=== PATIENT | male | born 1985 | race Caucasian/White ===

== ENCOUNTER 2019-05-02 19:51 | Emergency (ER) | payer OTHER ==
[2019-05-02] MEDS ORDERED: ALPRAZolam 0.5 MG Tab PO ONE (20:28)
[2019-05-02] MEDS ORDERED: Acetaminophen 325 MG Tab PO ONE (20:29)
[2019-05-02 21:02] LABS: BLOOD UREA NITROGEN,BUN 14 mg/dL (7.0-18.0); CARBON DIOXIDE,CO2 26.6 mmol/L (21.0-32.0); CHLORIDE,CL 101 mmol/L (98-107); GLUCOSE RANDOM 104 mg/dL (74-106); POTASSIUM,K 4.2 mmol/L (3.5-5.1); SODIUM,NA 138 mmol/L (136-148)
--- NOTE | 2019-05-02 21:05 | EDM.PDOC ---
ED HPI GENERAL MEDICAL PROBLEM - General Chief Complaint: Neurological Problem Stated Complaint: EMS ARRIVAL Time Seen by Provider: 05/02/19 20:10 Source of Information: Reports: Patient, EMS - History of Present Illness INITIAL COMMENTS - FREE TEXT/NARRATIVE: The patient is a 33-year-old male who presents to the ER for a reported first- time seizure. The patient has a history of PTSD from the for which he is on Xanax 1 mg 3 times a day. He states that a couple of days ago he stopped taking them all abruptly because he is tired of being on that medication. 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 When he woke up, there was EMS around him and he was told that he had a seizure. Patient denies any prodromal symptoms, he did not have any lightheaded sensations, did not feel nauseated, no flashing lights, no palpitations, no chest pain, no other acute complaints. The patient does state that he has a chronic headache for which she has never been seen that has been ongoing for a few years but he just assumed that it is secondary to all of his other chronic aches and pains from the . He also has an acute headache as well as the patient did strike his head and has a contusion on his left forehead. Bystanders state that the patient had a tonic-clonic seizure that lasted a couple of minutes and the patient had a postictal episode. He could not speak right, could not remember his 's phone number or who she was, etc. Currently he is awake alert and oriented x3 and feels normal except a little anxious. He denies any drug use or any other acute complaints. Treatments TISSUE TECHNOLOGIST: Reports: IV/IO head Pain Score (Numeric/FACES): 5 - Related Data Allergies Allergy/AdvReac Type Severity Reaction Status Date / Time No Known Allergies Allergy Verified 05/02/19 20:10 Home Meds: Home Meds ALPRAZolam [Xanax] 1 mg PO Q8HR 3 Days #10 tablet 05/02/19 [Rx] ALPRAZolam [Xanax] 1 mg PO TID 05/02/19 [History] Sertraline [Zoloft] 05/02/19 [History] ED ROS GENERAL - Review of Systems Review Of Systems: See Below (Positive for seizure, positive for acute on chronic headache, negative for fevers, negative for chills, negative for palpitations, negative for chest pain, all other Positives and pertinent negatives as per HPI. All other pertinent systems were reviewed and are negative ) ED EXAM, NEURO - Physical Exam Exam: See Below Text/Narrative:: Constitutional: No acute distress, Non-toxic appearance, appears slightly anxious but otherwise appropriate HEENT.: Normocephalic, Atraumatic with the exception of a small ecchymotic contusion on the left forehead, PERRL, EOMI, External ears are atraumatic, nares are patent without epistaxis Neck: Normal range of motion, Trachea Midline, No stridor Respiratory.: No respiratory distress, No tachypnea, Lungs Clear to Auscultation bilaterally without wheezes, rales, or rhonchi Cardiovascular.: Regular rate and Rhythm without murmurs, rubs, or gallops, good peripheral perfusion GI: Abdomen soft and non tender, no masses, no rebound, rigidity, or guarding Genital Urinary: Deferred Musculoskeletal: Good range of motion. All 4 extremities present and atraumatic , no edema Back: Full Range of Motion Skin: Warm, Dry, Color is ethnicity appropriate, No acute rash. Lymphatic: No lymphadenopathy noted Neurological: Alert, Awake and oriented x 3, No focal deficits noted appreciate , cranial nerves grossly intact, GCS 15 Psych: Affect, Judgement, mood normal *Q Meaningful Use (ADM) - VTE *Q VTE Criteria *Q: not indicated Course - Vital Signs Text/Narrative:: Given the entire history and exam my clinical suspicion is that the patient had a generalized tonic-clonic seizure secondary to the abrupt cessation of benzodiazepines for which she chronically takes 3 times daily. Given this and that the patient does drink daily (does not sound like he has an alcoholic ) but given the combination of the two and the abrupt cessation of the REYMUNDO receptor stimulation, this could prime the patient for seizures. Other considerations such as a brain mass, traumatic subdural hematoma, traumatic epidural hematoma, traumatic intracranial hemorrhage, hydrocephalus, seizure disorders, electrolyte disorder such as hypo-or hypernatremia, renal failure, hypoglycemia, cardiac dysrhythmias such as V. fib or V. tach, were also considered. CT scan of the brain was performed to rule out any acute pathology and although this does not the sensitivity of an MRI to rule out brain masses, or other neurological structural abnormalities it is sufficient to rule out any acute problems. Electrolytes are unremarkable, there are no signs of lymphomas or leukemias, and he does have a mild transaminitis but I do not think that this is clinically relevant in this situation. ECG The ECG was read and interpreted by me. There are p waves before every QRS with a ventricular rate of 92. The OH, QRS, and QT intervals are all normal. [place] is normal. ST segments are baseline and the T wave morphology is normal. Final interpretation is a normal Sinus rhythm and a normal ECG -and more specifically no signs of prolonged QT syndrome, [id number], Brugada syndrome, etc. or anything that could make him at a higher risk for V. fib/V. tach. I believe the patient and his appear to be responsible and they state that they will follow-up. After 2 hours of observation and no seizures I believe that he is stable to be discharged. However, he threw away all of his Xanax a couple of days ago so he was given Xanax 1 mg orally here in the ER and because there are no benzodiazepines in the [facility] -and it is a Sunday night, I will give him a prescription for Xanax enough to last him for several days until he can follow-up with his primary care physician and get appropriately weaned off of the benzodiazepines. He will also need appropriate follow-up with his physician to complete the seizure work-up on an outpatient basis. If he has any more seizures then he knows to return to the ER. Last Recorded V/S: Last Vital Signs Temp 36.8 C 05/02/19 20:05 Pulse 103 H 05/02/19 21:00 Resp 16 05/02/19 21:00 BP 132/81 05/02/19 21:00 Pulse Ox 99 05/02/19 21:00 - Orders/Labs/Meds Orders: Active Orders 24 hr Category Date Time Status EKG Documentation Completion [RC] STAT Care 05/02/19 20:25 Active Labs: Laboratory Tests 05/02/19 05/02/19 05/02/19 Range/Units 20:35 20:35 20:40 WBC 10.36 (4.0-11.0) K/uL RBC 5.18 (4.50-5.90) M/uL Hgb 16.6 (13.0-17.0) g/dL Hct 48.1 (38.0-50.0) % MCV 92.9 (80.0-98.0) fL MCH 32.0 (27.0-32.0) pg MCHC 34.5 (31.0-37.0) g/dL RDW Std Deviation 42.6 (28.0-62.0) fl RDW Coeff of [place]cha 13 (11.0-15.0) % Plt Count 252 (150-400) K/uL MPV 9.70 (7.40-12.00) fL Neut % (Auto) 72.3 (48.0-80.0) % Lymph % (Auto) 17.9 (16.0-40.0) % [place] % (Auto) 7.7 (0.0-15.0) % Eos % (Auto) 1.9 (0.0-7.0) % Baso % (Auto) 0.2 (0.0-1.5) % Neut # (Auto) 7.5 H (1.4-5.7) K/uL Lymph # (Auto) 1.9 (0.6-2.4) K/uL [place] # (Auto) 0.8 (0.0-0.8) K/uL Eos # (Auto) 0.2 (0.0-0.7) K/uL Baso # (Auto) 0.0 (0.0-0.1) K/uL Nucleated RBC % 0.0 /100WBC Nucleated RBCs # 0 K/uL Sodium 138 (136-148) mmol/L Potassium 4.2 (3.5-5.1) mmol/L Chloride 101 (98-107) mmol/L Carbon Dioxide 26.6 (21.0-32.0) mmol/L BUN 14 (7.0-18.0) mg/dL Creatinine 1.1 (0.8-1.3) mg/dL Est Cr Clr Drug Dosing 96.41 mL/min Estimated GFR (MDRD) > 60.0 ml/min Glucose 104 (74-106) mg/dL Calcium 8.7 (8.5-10.1) mg/dL Total Bilirubin 0.5 (0.2-1.0) mg/dL AST 105 H (15-37) IU/L ALT 151 H (14-63) IU/L Alkaline Phosphatase 84 (46-116) U/L Total Protein 7.2 (6.4-8.2) g/dL Albumin 3.9 (3.4-5.0) g/dL Globulin 3.3 (2.6-4.0) g/dL Albumin/Globulin Ratio 1.2 (0.9-1.6) Urine Color YELLOW Urine Appearance CLEAR Urine pH 6.5 (5.0-8.0) Ur Specific [place] 1.025 (1.001-1.035) Urine Protein NEGATIVE (NEGATIVE) mg/dL Urine Glucose (UA) NEGATIVE (NEGATIVE) mg/dL Urine Ketones 15 H (NEGATIVE) mg/dL Urine Occult Blood SMALL H (NEGATIVE) Urine Nitrite NEGATIVE (NEGATIVE) Urine Bilirubin NEGATIVE (NEGATIVE) Urine Urobilinogen 0.2 (<2.0) EU/dL Ur Leukocyte Esterase NEGATIVE (NEGATIVE) Urine RBC 0-2 (0-2/HPF) Urine WBC 0-1 (0-5/HPF) Ur Epithelial Cells RARE (NONE-FEW) Urine Bacteria RARE (NEGATIVE) Urine Opiates Screen (NEGATIVE) Ur Oxycodone Screen (NEGATIVE) Urine Methadone Screen (NEGATIVE) Ur Barbiturates Screen (NEGATIVE) Ur Phencyclidine Scrn (NEGATIVE) Ur Amphetamine Screen (NEGATIVE) U Methamphetamines Scrn (NEGATIVE) U Benzodiazepines Scrn (NEGATIVE) U Cocaine Metab Screen (NEGATIVE) U Marijuana (THC) Screen (NEGATIVE) Ethyl Alcohol <3 mg/dL 05/02/19 Range/Units 20:40 WBC (4.0-11.0) K/uL RBC (4.50-5.90) M/uL Hgb (13.0-17.0) g/dL Hct (38.0-50.0) % MCV (80.0-98.0) fL MCH (27.0-32.0) pg MCHC (31.0-37.0) g/dL RDW Std Deviation (28.0-62.0) fl RDW Coeff of [place] (11.0-15.0) % Plt Count (150-400) K/uL MPV (7.40-12.00) fL Neut % (Auto) (48.0-80.0) % Lymph % (Auto) (16.0-40.0) % [place] % (Auto) (0.0-15.0) % Eos % (Auto) (0.0-7.0) % Baso % (Auto) (0.0-1.5) % Neut # (Auto) (1.4-5.7) K/uL Lymph # (Auto) (0.6-2.4) K/uL [place] # (Auto) (0.0-0.8) K/uL Eos # (Auto) (0.0-0.7) K/uL Baso # (Auto) (0.0-0.1) K/uL Nucleated RBC % /100WBC Nucleated RBCs # K/uL Sodium (136-148) mmol/L Potassium (3.5-5.1) mmol/L Chloride (98-107) mmol/L Carbon Dioxide (21.0-32.0) mmol/L BUN (7.0-18.0) mg/dL Creatinine (0.8-1.3) mg/dL Est Cr Clr Drug Dosing mL/min Estimated GFR (MDRD) ml/min Glucose (74-106) mg/dL Calcium (8.5-10.1) mg/dL Total Bilirubin (0.2-1.0) mg/dL AST (15-37) IU/L ALT (14-63) IU/L Alkaline Phosphatase (46-116) U/L Total Protein (6.4-8.2) g/dL Albumin (3.4-5.0) g/dL Globulin (2.6-4.0) g/dL Albumin/Globulin Ratio (0.9-1.6) Urine Color Urine Appearance Urine pH (5.0-8.0) Ur Specific [place] (1.001-1.035) Urine Protein (NEGATIVE) mg/dL Urine Glucose (UA) (NEGATIVE) mg/dL Urine Ketones (NEGATIVE) mg/dL Urine Occult Blood (NEGATIVE) Urine Nitrite (NEGATIVE) Urine Bilirubin (NEGATIVE) Urine Urobilinogen (<2.0) EU/dL Ur Leukocyte Esterase (NEGATIVE) Urine RBC (0-2/HPF) Urine WBC (0-5/HPF) Ur Epithelial Cells (NONE-FEW) Urine Bacteria (NEGATIVE) Urine Opiates Screen NEGATIVE (NEGATIVE) Ur Oxycodone Screen NEGATIVE (NEGATIVE) Urine Methadone Screen NEGATIVE (NEGATIVE) Ur Barbiturates Screen NEGATIVE (NEGATIVE) Ur Phencyclidine Scrn NEGATIVE (NEGATIVE) Ur Amphetamine Screen NEGATIVE (NEGATIVE) U Methamphetamines Scrn NEGATIVE (NEGATIVE) U Benzodiazepines Scrn NEGATIVE (NEGATIVE) U Cocaine Metab Screen NEGATIVE (NEGATIVE) U Marijuana (THC) Screen NEGATIVE (NEGATIVE) Ethyl Alcohol mg/dL Meds: Medications Discontinued Medications Generic Name Dose Route Start Last Admin Trade Name Freq PRN Reason Stop Dose Admin Acetaminophen 650 mg 05/02/19 20:29 05/02/19 20:39 Tylenol PO 05/02/19 20:30 650 mg NOW ONE Administration Alprazolam 1 mg 05/02/19 20:28 05/02/19 20:39 Xanax PO 05/02/19 20:29 1 mg NOW ONE Administration Departure - Departure Time of Disposition: 22:14 Disposition: Home, Self-Care 01 Condition: Good Clinical Impression: Seizure - Discharge Information *PRESCRIPTION DRUG MONITORING PROGRAM REVIEWED*: Not Applicable *COPY OF PRESCRIPTION DRUG MONITORING REPORT IN PATIENT GINA: Not Applicable Prescriptions: ALPRAZolam [Xanax] 1 mg PO Q8HR 3 Days #10 tablet Instructions: Seizure, Adult, [id number] Referrals: Sav Trinh MD [Primary Care Provider] - Forms: ED Department Discharge Sepsis Event Note - Evaluation Sepsis Screening Result: No Definite Risk - Focused Exam Vital Signs: Vital Signs Temp Pulse Resp BP Pulse Ox 05/02/19 21:00 103 H 16 132/81 99 05/02/19 20:05 36.8 C 105 H 16 92 L Date Exam was Performed: 05/02/19 Time Exam was Performed: 22:07 - My Orders Last 24 Hours: My Active Orders 05/02/19 20:25 EKG Documentation Completion [RC] STAT - Assessment/Plan Last 24 Hours: My Active Orders 05/02/19 20:25 EKG Documentation Completion [RC] STAT
--- NOTE | 2019-05-02 21:09 | CT ---
INDICATION: Seizure TECHNIQUE: CT head without contrast. COMPARISON: None. FINDINGS: CSF spaces: Within normal limits for age. Brain parenchyma: The vallejo-white differentiation is normal. No sign of mass, hemorrhage, or midline shift. Skull base and calvarium: The visualized paranasal sinuses and mastoid air cells demonstrate no acute or significant findings. The visualized orbits are grossly unremarkable. No skull fractures. IMPRESSION: Unremarkable noncontrast head CT. Please note that all CT scans at this facility use dose modulation, iterative reconstruction, and/or weight-based dosing when appropriate to reduce radiation dose to as low as reasonably achievable. Dictated by Rashi Smith MD @ May 02 2019 9:05PM Signed by Dr. Rashi Smith @ May 02 2019 9:07PM
== END 2019-05-02 22:25 | disposition home or self-care (01) ==
LOC: MW.ED 19:51
DX: R56.9 Unspecified convulsions (principal); F43.10 Post-traumatic stress disorder, unspecified; Z79.899 Other long term (current) drug therapy
CPT/HCPCS: 36415; 70450; 80053; 80305; 80307; 81001; 85025; 93005; 99285; A9270; 99284

== ENCOUNTER 2019-06-14 21:59 | Emergency (ER) | payer OTHER ==
[2019-06-14] MEDS ORDERED: ALPRAZolam 0.5 MG Tab PO ONE (23:41)
--- NOTE | 2019-06-15 00:02 | EDM.PDOCBH ---
ED [facility] GENERAL MEDICAL PROBLEM - General Chief Complaint: Behavioral/Psych Stated Complaint: MED CLEARANCE/VOLUNTARY MENTAL HEALTH Time Seen by Provider: 06/14/19 23:59 Source of Information: Reports: Patient History Limitations: Reports: No Limitations - History of Present Illness INITIAL COMMENTS - FREE TEXT/NARRATIVE: Patient is 33-year-old male with past medical history of depression presenting with chief complaint of suicidal ideations. Patient was with earlier today and they got into a heated argument. Patient states that he became very aggressive towards her threatening her and then turning that aggression on himself when he pulled a gun on himself. Formulation Technician were called and came to the patient. Patient had no other suicidal attempts. Patient denies taking any medications but does report taking alcohol earlier this evening. Patient states he is struggled with depression since 2007. Patient denies any other injuries. Patient denies any physical ailments or medical complaints. Patient came here voluntarily under police detainment. Pmhx: Depression, PTSD, traumatic brain injury Pshx: None Family Hx: noncontributory Smoking history? Yes Etoh use? Occasional Drug use? none In addition to that documented in the HPI above, the additional ROS was obtained : Constitutional: Denies fevers or chills Eyes: Denies vision changes ENMT: Denies sore throat CV: Denies chest pain Resp: Denies SOB GI: Denies vomiting or diarrhea : Denies painful urination MSK: Denies recent trauma Skin: Denies new rashes Neuro: Denies new numbness or tingling or weakness Endocrine: Denies unexpected weight loss Heme: Denies bleeding disorders I have reviewed the triage vital signs Const: Well nourished, well developed, appears stated age Eyes: PERRL, no conjunctival injection HENT: NCAT, Neck supple without meningismus CV: RRR, Warm, well-perfused extremities RESP: CTAB, Unlabored respiratory effort GI: soft, non-tender, non-distended, no masses MSK: No gross deformities appreciated Skin: Numerous tattoos noted. Warm, dry. No rashes Neuro: Alert, infection preventionist II-XII grossly intact. Sensation and motor function of extremities grossly intact. Psych: Slightly tearful appropriate mood and affect Assessment and plan: Patient 31-year-old male here with suicidal ideations. Patient is cooperative in the emergency room did not demonstrate any medical complaints. Labs were reviewed and no acute abnormalities were noted. Patient is currently medically cleared and stable for psychiatric evaluation. Given patient's complaints and recent history, I believe the patient requires emergent psychiatric intervention. Believe the patient is a danger to himself if not others. This case was discussed with Dr. Recinos in [place] who agreed to accept the patient for evaluation. At this time, patient is awaiting ground transportation to [place] for psychiatric evaluation. - Related Data Allergies Allergy/AdvReac Type Severity Reaction Status Date / Time No Known Allergies Allergy Verified 06/14/19 23:02 Home Meds: Home Meds ALPRAZolam [Xanax] 1 mg PO TID 05/02/19 [History] Sertraline [Zoloft] 100 mg PO DAILY 05/02/19 [History] Zolpidem Tartrate [Ambien] 5 mg PO BEDTIME 06/14/19 [History] Past Medical History - Past Health History Medical/Surgical History: Denies Medical/Surgical History Genitourinary History: Reports: Other (See Below) Other Genitourinary History: epididimytis Neurological History: Reports: Other (See Below) Other Neuro History: Traumatic Brain injury Psychiatric History: Reports: Anxiety, Depression, PTSD - Infectious Disease History Infectious Disease History: Reports: Chicken Pox - Past Surgical History Male Surgical History: Reports: None Neurological Surgical History: Reports: None Social & Family History - Family History Family Medical History: Noncontributory - Tobacco Use Smoking Status *Q: Current Every Day Smoker Years of Tobacco use: 20 Packs/Tins Daily: 0.5 - Caffeine Use Caffeine Use: Reports: Energy Drinks - Alcohol Use Days Per Week of Alcohol Use: 7 Number of Drinks Per Day: 2 Total Drinks Per Week: 14 - Recreational Drug Use Recreational Drug Use: No ED ROS GENERAL - Review of Systems Review Of Systems: See Below ED EXAM, BEHAVIORAL HEALTH - Physical Exam Exam: See Below COURSE, BEHAVIORAL HEALTH COMP - Course Vital Signs: Last Vital Signs Temp 36.9 C 06/15/19 02:22 Pulse 95 06/15/19 02:22 Resp 17 06/15/19 02:22 BP 141/93 H 06/15/19 02:22 Pulse Ox 94 L 06/15/19 02:22 Orders, Labs, Meds: Active Orders 24 hr Category Date Time Status EKG Documentation Completion [RC] STAT Care 06/14/19 23:19 Active Laboratory Tests 06/14/19 06/14/19 06/14/19 Range/Units 22:57 22:57 23:59 WBC 11.74 H (4.0-11.0) K/uL RBC 5.64 (4.50-5.90) M/uL Hgb 18.3 H (13.0-17.0) g/dL Hct 53.6 H (38.0-50.0) % MCV 95.0 (80.0-98.0) fL MCH 32.4 H (27.0-32.0) pg MCHC 34.1 (31.0-37.0) g/dL RDW Std Deviation 44.0 (28.0-62.0) fl RDW Coeff of [place] 13 (11.0-15.0) % Plt Count 295 (150-400) K/uL MPV 9.40 (7.40-12.00) fL Neut % (Auto) 59.6 (48.0-80.0) % Lymph % (Auto) 31.5 (16.0-40.0) % [place] % (Auto) 5.4 (0.0-15.0) % Eos % (Auto) 3.1 (0.0-7.0) % Baso % (Auto) 0.4 (0.0-1.5) % Neut # (Auto) 7.0 H (1.4-5.7) K/uL Lymph # (Auto) 3.7 H (0.6-2.4) K/uL [place] # (Auto) 0.6 (0.0-0.8) K/uL Eos # (Auto) 0.4 (0.0-0.7) K/uL Baso # (Auto) 0.1 (0.0-0.1) K/uL Nucleated RBC % 0.0 /100WBC Nucleated RBCs # 0 K/uL Sodium (136-148) mmol/L Potassium (3.5-5.1) mmol/L Chloride (98-107) mmol/L Carbon Dioxide (21.0-32.0) mmol/L BUN (7.0-18.0) mg/dL Creatinine (0.8-1.3) mg/dL Est Cr Clr Drug Dosing mL/min Estimated GFR (MDRD) ml/min Glucose (74-106) mg/dL Calcium (8.5-10.1) mg/dL Magnesium (1.8-2.4) mg/dL Total Bilirubin (0.2-1.0) mg/dL AST (15-37) IU/L ALT (14-63) IU/L Alkaline Phosphatase (46-116) U/L Total Protein (6.4-8.2) g/dL Albumin (3.4-5.0) g/dL Globulin (2.6-4.0) g/dL Albumin/Globulin Ratio (0.9-1.6) TSH 3rd Generation (0.36-3.74) uIU/mL Urine Color YELLOW Urine Appearance CLEAR Urine pH 6.5 (5.0-8.0) Ur Specific [place] 1.020 (1.001-1.035) Urine Protein NEGATIVE (NEGATIVE) mg/dL Urine Glucose (UA) NEGATIVE (NEGATIVE) mg/dL Urine Ketones NEGATIVE (NEGATIVE) mg/dL Urine Occult Blood NEGATIVE (NEGATIVE) Urine Nitrite NEGATIVE (NEGATIVE) Urine Bilirubin NEGATIVE (NEGATIVE) Urine Urobilinogen 0.2 (<2.0) EU/dL Ur Leukocyte Esterase NEGATIVE (NEGATIVE) Urine RBC 0-1 (0-2/HPF) Urine WBC 0-1 (0-5/HPF) Ur Epithelial Cells RARE (NONE-FEW) Urine Bacteria RARE (NEGATIVE) Salicylates (0-20) mg/dL Urine Opiates Screen NEGATIVE (NEGATIVE) Ur Oxycodone Screen NEGATIVE (NEGATIVE) Urine Methadone Screen NEGATIVE (NEGATIVE) Acetaminophen ug/mL Ur Barbiturates Screen NEGATIVE (NEGATIVE) Ur Phencyclidine Scrn NEGATIVE (NEGATIVE) Ur Amphetamine Screen NEGATIVE (NEGATIVE) U Methamphetamines Scrn NEGATIVE (NEGATIVE) U Benzodiazepines Scrn POSITIVE (NEGATIVE) U Cocaine Metab Screen NEGATIVE (NEGATIVE) U Marijuana (THC) Screen NEGATIVE (NEGATIVE) Ethyl Alcohol mg/dL 06/14/19 Range/Units 23:59 WBC (4.0-11.0) K/uL RBC (4.50-5.90) M/uL Hgb (13.0-17.0) g/dL Hct (38.0-50.0) % MCV (80.0-98.0) fL MCH (27.0-32.0) pg MCHC (31.0-37.0) g/dL RDW Std Deviation (28.0-62.0) fl RDW Coeff of [place] (11.0-15.0) % Plt Count (150-400) K/uL MPV (7.40-12.00) fL Neut % (Auto) (48.0-80.0) % Lymph % (Auto) (16.0-40.0) % [place] % (Auto) (0.0-15.0) % Eos % (Auto) (0.0-7.0) % Baso % (Auto) (0.0-1.5) % Neut # (Auto) (1.4-5.7) K/uL Lymph # (Auto) (0.6-2.4) K/uL [place] # (Auto) (0.0-0.8) K/uL Eos # (Auto) (0.0-0.7) K/uL Baso # (Auto) (0.0-0.1) K/uL Nucleated RBC % /100WBC Nucleated RBCs # K/uL Sodium 143 (136-148) mmol/L Potassium 4.3 (3.5-5.1) mmol/L Chloride 104 (98-107) mmol/L Carbon Dioxide 29.5 (21.0-32.0) mmol/L BUN 8 (7.0-18.0) mg/dL Creatinine 0.9 (0.8-1.3) mg/dL Est Cr Clr Drug Dosing 125.50 mL/min Estimated GFR (MDRD) > 60.0 ml/min Glucose 96 (74-106) mg/dL Calcium 8.6 (8.5-10.1) mg/dL Magnesium 2.0 (1.8-2.4) mg/dL Total Bilirubin 0.3 (0.2-1.0) mg/dL AST 69 H (15-37) IU/L ALT 84 H (14-63) IU/L Alkaline Phosphatase 94 (46-116) U/L Total Protein 8.2 (6.4-8.2) g/dL Albumin 4.4 (3.4-5.0) g/dL Globulin 3.8 (2.6-4.0) g/dL Albumin/Globulin Ratio 1.2 (0.9-1.6) TSH 3rd Generation 4.59 H (0.36-3.74) uIU/mL Urine Color Urine Appearance Urine pH (5.0-8.0) Ur Specific [place] (1.001-1.035) Urine Protein (NEGATIVE) mg/dL Urine Glucose (UA) (NEGATIVE) mg/dL Urine Ketones (NEGATIVE) mg/dL Urine Occult Blood (NEGATIVE) Urine Nitrite (NEGATIVE) Urine Bilirubin (NEGATIVE) Urine Urobilinogen (<2.0) EU/dL Ur Leukocyte Esterase (NEGATIVE) Urine RBC (0-2/HPF) Urine WBC (0-5/HPF) Ur Epithelial Cells (NONE-FEW) Urine Bacteria (NEGATIVE) Salicylates 4.0 (0-20) mg/dL Urine Opiates Screen (NEGATIVE) Ur Oxycodone Screen (NEGATIVE) Urine Methadone Screen (NEGATIVE) Acetaminophen <2.0 ug/mL Ur Barbiturates Screen (NEGATIVE) Ur Phencyclidine Scrn (NEGATIVE) Ur Amphetamine Screen (NEGATIVE) U Methamphetamines Scrn (NEGATIVE) U Benzodiazepines Scrn (NEGATIVE) U Cocaine Metab Screen (NEGATIVE) U Marijuana (THC) Screen (NEGATIVE) Ethyl Alcohol 218 mg/dL Medications Discontinued Medications Generic Name Dose Route Start Last Admin Trade Name Freq PRN Reason Stop Dose Admin Alprazolam 1 mg 06/14/19 23:41 06/15/19 00:14 Xanax PO 06/14/19 23:42 1 mg NOW ONE Administration Alprazolam 1 mg 06/15/19 01:48 06/15/19 02:24 Xanax PO 06/15/19 01:49 1 mg NOW ONE Administration Departure - Departure Time of Disposition: 03:02 Disposition: DC/Tfer to Psych Hosp/Unit [facility] Clinical Impression: Suicidal ideation - Discharge Information Referrals: Sav Trinh MD [Primary Care Provider] - Forms: ED Department Discharge Sepsis Event Note - Evaluation Sepsis Screening Result: No Definite Risk - Focused Exam Vital Signs: Vital Signs Temp Pulse Resp BP Pulse Ox 06/15/19 02:22 36.9 C 95 17 141/93 H 94 L 06/15/19 00:19 36.1 C 94 18 135/72 94 L 06/14/19 22:47 36.1 C 83 18 136/84 98 Date Exam was Performed: 06/15/19 Time Exam was Performed: 03:00 - My Orders Last 24 Hours: My Active Orders 06/14/19 23:19 EKG Documentation Completion [RC] STAT - Assessment/Plan Last 24 Hours: My Active Orders 06/14/19 23:19 EKG Documentation Completion [RC] STAT
[2019-06-15 00:40] LABS: BLOOD UREA NITROGEN,BUN 8 mg/dL (7.0-18.0); CARBON DIOXIDE,CO2 29.5 mmol/L (21.0-32.0); CHLORIDE,CL 104 mmol/L (98-107); POTASSIUM,K 4.3 mmol/L (3.5-5.1); SODIUM,NA 143 mmol/L (136-148)
[2019-06-15 00:48] LABS: GLUCOSE RANDOM 96 mg/dL (74-106)
[2019-06-15 01:06] LABS: ACETAMINOPHEN <2.0 ug/mL
[2019-06-15] MEDS ORDERED: ALPRAZolam 0.5 MG Tab PO ONE (01:48)
== END 2019-06-15 06:10 ==
LOC: MW.ED 21:59
DX: R45.851 Suicidal ideations (principal); F17.210 Nicotine dependence, cigarettes, uncomplicated; F41.9 Anxiety disorder, unspecified; F32.9 Major depressive disorder, single episode, unspecified; Z79.899 Other long term (current) drug therapy
CPT/HCPCS: 36415; 80053; 80305; 80307; 81001; 83735; 84443; 85025; 93005; 99285; A9270; 99283

== ENCOUNTER 2019-08-11 19:03 | Emergency (ER) | payer BC, OTHER ==
[2019-08-11] MEDS ORDERED: Sodium Chloride 0.9% 1,000 ML IV ONE (19:20)
[2019-08-11] MEDS ORDERED: MVI, Adult with Vitamin K 10 ML, Thiamine 100 MG, Folic Acid 1 MG in Sodium Chloride 0.... IV ONE ×4 (19:20)
[2019-08-11] MEDS ORDERED: LORazepam 2 MG/ML SDV IVPUSH ONE (19:25)
--- NOTE | 2019-08-11 19:25 | EDM.PDOC ---
ED HPI GENERAL MEDICAL PROBLEM - General Chief Complaint: Drug or Alcohol Abuse Stated Complaint: ALCOHOL POISONING Time Seen by Provider: 08/11/19 19:15 Source of Information: Reports: Patient History Limitations: Reports: No Limitations - History of Present Illness INITIAL COMMENTS - FREE TEXT/NARRATIVE: HISTORY AND PHYSICAL: History of present illness: Patient is a 33-year-old male who presents to the emergency room concerned he may have withdrawal from alcohol. Patient states that he does go on binges of drinking hard alcohol for weeks at a time and then may go an extended period of abstaining. He does have a scheduled intake appointment at [facility] in [place] (08/12) for inpatient alcohol treatment program. He reports the last time he stopped drinking from a "heavy binge" he had also stopped taking his Xanax at the same time and did have a seizure. His is concerned as they were unsure if the seizure was caused from him suddenly stopping the Xanax or the alcohol. Reports his last drink was prior to arrival 30-60 minutes ago, typically drinks 1 bottle of vodka per day. Currently complaining of nausea without vomiting. Abdomen tender with palpation, but otherwise is not causing pain. Does have a history of elevated LFTs, no known hepatitis. He denies any drug abuse. Patient denies any fever, chills, headache, change in vision, syncope or near syncope. Denies any chest pain, back pain, shortness of breath or cough. Denies any abdominal pain, vomiting, diarrhea, constipation or dysuria. Has not noted any blood in urine or stool. Patient has been eating and drinking appropriately. Review of systems: As per history of present illness and below otherwise all systems reviewed and negative. Past medical history: As per history of present illness and as reviewed below otherwise noncontributory. Surgical history: As per history of present illness and as reviewed below otherwise noncontributory. Social history: See social history for further information Family history: As per history of present illness and as reviewed below otherwise noncontributory. Physical exam: General: Well-developed and well-nourished 33-year-old male. Alert and oriented. Answering questions appropriately. Nontoxic-appearing and in no acute distress. Vital signs are stable and have been reviewed by me. HEENT: Atraumatic, normocephalic, pupils equal and reactive bilaterally, negative for conjunctival pallor or scleral icterus, mucous membranes moist, TMs normal bilaterally, throat clear, neck supple, nontender, trachea midline. No drooling or trismus noted. No meningeal signs. No hot potato voice noted. Lungs: Clear to auscultation, breath sounds equal bilaterally, chest nontender. Heart: S1S2, regular rate and rhythm without overt murmur Abdomen: Soft, nondistended, generalized tenderness in all 4 quadrants. Negative for masses or costovertebral tenderness. Pelvis: Stable nontender. Skin: Intact, warm, dry. No lesions or rashes noted. Extremities: Atraumatic, moves all extremities per self without difficulty or deficits, negative for cords or calf pain. Neurovascular unremarkable. Neuro: Awake, alert, oriented. Cranial nerves II through XII unremarkable. Cerebellum unremarkable. Motor and sensory unremarkable throughout. Exam nonfocal. Notes: Upon patient arrival I did have a conversation with him about what his sick expectation of his ED visit today was, he states he wanted to make sure he was "okay to go to [place]" in 2 days. He does not have any desire of being admitted. States he is unsure if he will stop drinking when he is discharged. While patient was up ambulating in the room he states he fell and hit his head "woke up on the cot". This was not witnessed nor did any of the nursing staff hear him fall, patient was reevaluated there is no evidence of trauma or injury. TMs normal bilaterally. Oral mucosa intact without any injury or abrasion. Will get a head CT as he states he thinks he may have passed out. CT of the abdomen and pelvis shows no acute findings. Head CT shows some chronic sinusitis, otherwise no acute findings are noted. Patient is requesting to be discharged home. His is out in the waiting area to drive him home/take responsibility of him. Patient's vital signs remained stable. He is alert, oriented and answering questions appropriately. Supportive care measures were reviewed and discussed. Voices understanding and is agreeable to plan of care. Denies any further questions or concerns at this time. Diagnostics: CBC, CMP, EtOH, lipase Therapeutics: IV fluids, Ativan, Banana bag Prescription: None Impression: Alcohol abuse Fall Plan: 1. Please try and limit or stop alcohol use until your have your intake at [facility]. Use your home medications as prescribed. 2. Tylenol and/or Ibuprofen as needed as discussed. 3. Return to the ED as needed as discussed. Definitive disposition and diagnosis as appropriate pending reevaluation and review of above. - Related Data Allergies Allergy/AdvReac Type Severity Reaction Status Date / Time clarithromycin [From Biaxin] Allergy Other Verified 08/11/19 19:14 codeine Allergy Itching Verified 08/11/19 19:14 Home Meds: Home Meds ALPRAZolam [Xanax] 1 mg PO TID 05/02/19 [History] Sertraline [Zoloft] 100 mg PO DAILY 05/02/19 [History] Past Medical History - Past Health History Medical/Surgical History: Denies Medical/Surgical History HEENT History: Reports: None Cardiovascular History: Reports: None Respiratory History: Reports: None Gastrointestinal History: Reports: None Genitourinary History: Reports: Other (See Below) Other Genitourinary History: epididimytis Musculoskeletal History: Reports: None Neurological History: Reports: Other (See Below) Other Neuro History: Traumatic Brain injury Psychiatric History: Reports: Anxiety, Depression, PTSD Endocrine/Metabolic History: Reports: None Hematologic History: Reports: None Immunologic History: Reports: None Oncologic (Cancer) History: Reports: None Dermatologic History: Reports: None - Infectious Disease History Infectious Disease History: Reports: Chicken Pox, TB - Past Surgical History Head Surgeries/Procedures: Reports: None HEENT Surgical History: Reports: None Cardiovascular Surgical History: Reports: None Respiratory Surgical History: Reports: None GI Surgical History: Reports: None Male Surgical History: Reports: None Endocrine Surgical History: Reports: None Neurological Surgical History: Reports: None Musculoskeletal Surgical History: Reports: None Oncologic Surgical History: Reports: None Dermatological Surgical History: Reports: None Social & Family History - Family History Family Medical History: Noncontributory - Tobacco Use Smoking Status *Q: Current Every Day Smoker Years of Tobacco use: 20 Packs/Tins Daily: 2 - Caffeine Use Caffeine Use: Reports: Coffee - Alcohol Use Days Per Week of Alcohol Use: 7 Number of Drinks Per Day: 1 Total Drinks Per Week: 7 - Recreational Drug Use Recreational Drug Use: No ED ROS GENERAL - Review of Systems Review Of Systems: Comprehensive ROS is negative, except as noted in HPI. - Physical Exam Exam: See Below (See dictation) Course - Vital Signs Last Recorded V/S: Last Vital Signs Temp 96.3 F L 08/11/19 20:46 Pulse 94 08/11/19 20:46 Resp 14 08/11/19 20:46 BP 127/83 08/11/19 20:46 Pulse Ox 95 08/11/19 20:46 - Orders/Labs/Meds Labs: Laboratory Tests 08/11/19 08/11/19 08/11/19 Range/Units 19:14 19:14 19:35 WBC 12.48 H (4.0-11.0) K/uL RBC 5.86 (4.50-5.90) M/uL Hgb 19.1 H (13.0-17.0) g/dL Hct 53.8 H (38.0-50.0) % MCV 91.8 (80.0-98.0) fL MCH 32.6 H (27.0-32.0) pg MCHC 35.5 (31.0-37.0) g/dL RDW Std Deviation 42.4 (28.0-62.0) fl RDW Coeff of [place] 13 (11.0-15.0) % Plt Count 298 (150-400) K/uL MPV 9.80 (7.40-12.00) fL Neut % (Auto) 51.4 (48.0-80.0) % Lymph % (Auto) 38.7 (16.0-40.0) % [place] % (Auto) 5.2 (0.0-15.0) % Eos % (Auto) 4.3 (0.0-7.0) % Baso % (Auto) 0.4 (0.0-1.5) % Neut # (Auto) 6.4 H (1.4-5.7) K/uL Lymph # (Auto) 4.8 H (0.6-2.4) K/uL [place] # (Auto) 0.7 (0.0-0.8) K/uL Eos # (Auto) 0.5 (0.0-0.7) K/uL Baso # (Auto) 0.1 (0.0-0.1) K/uL Nucleated RBC % 0.0 /100WBC Nucleated RBCs # 0 K/uL Sodium 143 (136-148) mmol/L Potassium 3.8 (3.5-5.1) mmol/L Chloride 104 (98-107) mmol/L Carbon Dioxide 27.8 (21.0-32.0) mmol/L BUN 13 (7.0-18.0) mg/dL Creatinine 1.2 (0.8-1.3) mg/dL Est Cr Clr Drug Dosing 91.25 mL/min Estimated GFR (MDRD) > 60.0 ml/min Glucose 141 H (74-106) mg/dL Calcium 8.7 (8.5-10.1) mg/dL Total Bilirubin 0.3 (0.2-1.0) mg/dL AST 47 H (15-37) IU/L ALT 48 (14-63) IU/L Alkaline Phosphatase 98 (46-116) U/L Total Protein 8.1 (6.4-8.2) g/dL Albumin 4.4 (3.4-5.0) g/dL Globulin 3.7 (2.6-4.0) g/dL Albumin/Globulin Ratio 1.2 (0.9-1.6) Lipase 372 (73-393) U/L Urine Color YELLOW Urine Appearance CLEAR Urine pH 6.0 (5.0-8.0) Ur Specific [place] 1.025 (1.001-1.035) Urine Protein NEGATIVE (NEGATIVE) mg/dL Urine Glucose (UA) NEGATIVE (NEGATIVE) mg/dL Urine Ketones NEGATIVE (NEGATIVE) mg/dL Urine Occult Blood NEGATIVE (NEGATIVE) Urine Nitrite NEGATIVE (NEGATIVE) Urine Bilirubin NEGATIVE (NEGATIVE) Urine Urobilinogen 0.2 (<2.0) EU/dL Ur Leukocyte Esterase NEGATIVE (NEGATIVE) Ethyl Alcohol 255 mg/dL Meds: Medications Discontinued Medications Generic Name Dose Route Start Last Admin Trade Name Freq PRN Reason Stop Dose Admin Multivitamins/Minerals 10 ml/ 1,011.2 mls @ 999 mls/hr 08/11/19 19:20 20:06 Thiamine HCl 100 mg/ Folic IV 08/11/19 20:20 999 mls/hr Acid 1 mg/ Sodium Chloride ONETIME ONE Administration Sodium Chloride 1,000 mls @ 999 mls/hr 08/11/19 19:20 08/11/19 19:28 Normal Saline IV 08/11/19 20:20 999 mls/hr STAT ONE Administration Iopamidol 100 ml 08/11/19 20:50 08/11/19 20:50 Isovue-370 (76%) IVPUSH 08/11/19 20:51 100 ml ONETIME STA Administration Lorazepam 1 mg 08/11/19 19:25 08/11/19 19:29 Ativan IVPUSH 08/11/19 19:26 1 mg ONETIME ONE Administration Departure - Departure Time of Disposition: 21:14 Disposition: Home, Self-Care 01 Clinical Impression: Alcohol abuse Fall Qualifiers: Encounter type: initial encounter Qualified Code(s): W19.XXXA - Unspecified fall, initial encounter - Discharge Information Instructions: Alcohol Intoxication, [id number] Referrals: Sav Trinh MD [Primary Care Provider] - Forms: ED Department Discharge Additional Instructions: The following information is given to patients seen in the emergency department who are being discharged to home. This information is to outline your options for follow-up care. We provide all patients seen in our emergency department with a follow-up referral. The need for follow-up, as well as the timing and circumstances, are variable depending upon the specifics of your emergency department visit. If you don't have a primary care physician on staff, we will provide you with a referral. We always advise you to contact your personal physician following an emergency department visit to inform them of the circumstance of the visit and for follow-up with them and/or the need for any referrals to a consulting specialist. The emergency department will also refer you to a specialist when appropriate. This referral assures that you have the opportunity for follow-up care with a specialist. All of these measure are taken in an effort to provide you with optimal care, which includes your follow-up. Under all circumstances we always encourage you to contact your private physician who remains a resource for coordinating your care. When calling for follow-up care, please make the office aware that this follow-up is from your recent emergency room visit. If for any reason you are refused follow-up, please contact the [facility] Emergency Department at and asked to speak to the emergency department charge nurse. [facility] [address] [place] [id number] [facility] [address] [place] [address] 1. Please try and limit or stop alcohol use until your have your intake at [facility]. Use your home medications as prescribed. 2. Tylenol and/or Ibuprofen as needed as discussed. 3. Return to the ED as needed as discussed. Sepsis Event Note (ED) - Evaluation Sepsis Screening Result: No Definite Risk - Focused Exam Vital Signs: Vital Signs Temp Pulse Resp BP Pulse Ox 08/11/19 20:46 96.3 F L 94 14 127/83 95 08/11/19 19:31 98.2 F 96 18 129/75 93 L 08/11/19 19:11 96.6 F L 98 18 95
[2019-08-11 19:52] LABS: BLOOD UREA NITROGEN,BUN 13 mg/dL (7.0-18.0); CARBON DIOXIDE,CO2 27.8 mmol/L (21.0-32.0); CHLORIDE,CL 104 mmol/L (98-107); GLUCOSE RANDOM 141 mg/dL (74-106); LIPASE 372 U/L (73-393); POTASSIUM,K 3.8 mmol/L (3.5-5.1); SODIUM,NA 143 mmol/L (136-148)
[2019-08-11] MEDS ORDERED: Iopamidol 755 Mg/ML 100 ML Bottle IVPUSH STA (20:50)
--- NOTE | 2019-08-11 21:10 | CT ---
CT abdomen and pelvis Technique: Multiple axial sections were obtained from above the dome of the diaphragm inferiorly through the pubic symphysis. Intravenous contrast was utilized. No oral contrast has been given. Findings: Visualized lung bases show nothing acute. Liver contains no focal abnormality. Spleen appears within normal limits. Adrenal glands show no nodule. Pancreas is within normal limits. Kidneys show symmetric contrast enhancement without hydronephrosis or mass. Aorta shows no aneurysm. Gallbladder contains no calcified gallstones. No retroperitoneal adenopathy or mesenteric abnormalities are seen. No pelvic mass or adenopathy is seen. Appendix is seen which is normal in size. No free fluid or inflammatory change is appreciated. Bone window settings were reviewed which show no discrete abnormality. Impression: 1. Nothing acute is appreciated on CT study of the abdomen and pelvis. Diagnostic code #1 Study was dictated in MDT 1.
--- NOTE | 2019-08-11 21:11 | CT ---
Head CT Technique: Multiple axial sections through the brain were obtained. Intravenous contrast was not utilized. Comparison: Previous MRI brain of 05/08/19 is available. Findings: Ventricles along with basal cisterns and sulci over the convexities are within normal limits for the patient's age. No abnormal parenchymal densities are seen. No evidence of intracranial hemorrhage. No midline shift or mass effect is seen. Bone window settings were reviewed. Mild mucosal thickening is seen within the ethmoid sinuses. Other visualized sinuses show nothing acute. Mastoid sinuses show nothing acute. No acute calvarial finding is seen. Impression: 1. Sinus findings which are most likely chronic. 2. No acute intracranial abnormality is appreciated. Diagnostic code #2 Study was dictated in MDT
== END 2019-08-11 22:10 | disposition home or self-care (01) ==
LOC: MW.ED 19:03
DX: F10.239 Alcohol dependence with withdrawal, unspecified (principal); F41.9 Anxiety disorder, unspecified; F32.9 Major depressive disorder, single episode, unspecified; F17.210 Nicotine dependence, cigarettes, uncomplicated; Y90.8 Blood alcohol level of 240 mg/100 ml or more; Z88.1 Allergy status to other antibiotic agents; Z88.5 Allergy status to narcotic agent; Z79.899 Other long term (current) drug therapy; W19.XXXA Unspecified fall, initial encounter
CPT/HCPCS: 36415; 70450; 74177; 80053; 80307; 81003; 83690; 85025; 96361; 96365; 96366; 96375; 99284; J2060; J3411; J7030; Q9967; 99283